=== PATIENT | male | born 1975 | race Hispanic/Latino ===

== ENCOUNTER 2021-09-09 11:26 | Emergency (ER) | payer OTHER, SELFPAY ==
[2021-09-09] MEDS ORDERED: Ibuprofen 800 MG TAB ONE (12:25)
[2021-09-09] MEDS ORDERED: Acetaminophen 500 MG TAB ONE (12:25)
== END 2021-09-09 12:50 | disposition home or self-care (01) ==
LOC: MADERS 11:26
DX: S06.0X0A Concussion without loss of consciousness, initial encounter (principal); S70.12XA Contusion of left thigh, initial encounter; R07.9 Chest pain, unspecified; M54.6 Pain in thoracic spine; R29.700 NIHSS score 0; V49.9XXA Car occupant (driver) (passenger) injured in unspecified traffic accident, initial encounter; W22.10XA Striking against or struck by unspecified automobile airbag, initial encounter; Y92.415 Exit ramp or entrance ramp of street or highway as the place of occurrence of the external cause
CPT/HCPCS: 71046